=== PATIENT | female | born 1960 | race African-American/Black ===

== ENCOUNTER 2023-08-15 10:44 | Outpatient (CLI) | payer OTHER, MEDICAID | END 2023-08-15 10:45 | disposition home or self-care (01) | LOC: CSHRAD 10:44 | PROVIDERS: ATTEND Internal Medicine | DX: J44.1 Chronic obstructive pulmonary disease with (acute) exacerbation (principal) | CPT/HCPCS: 71046 ==

== ENCOUNTER 2023-11-03 18:30 | Inpatient (IN) | payer OTHER, MEDICAID ==
[2023-11-03] MEDS ORDERED: Furosemide 40 MG/4 ML VIAL SLOW IVP SCH (23:15)
[2023-11-03] MEDS ORDERED: Aspirin 325 MG TAB PO SCH (23:15)
[2023-11-03] MEDS ORDERED: Potassium Chloride 20 MEQ TAB PO SCH (23:15)
[2023-11-03 23:43] LABS: Magnesium 2.1 mg/dL (1.6-2.6)
[2023-11-03 23:49] LABS: Troponin I 0.081 ng/mL (< 0.028)
[2023-11-04 01:43] LABS: Amphetamine Not Detected (NotDetected); Barbiturates Screen Not Detected (NotDetected); Benzodiazepine Screen Not Detected (NotDetected); Cocaine Metabolite Screen Detected (NotDetected); Methadone Not Detected (NotDetected); Methamphetamine Not Detected (NotDetected); Opiate Screen Not Detected (NotDetected); Oxycodone Screen Not Detected (NotDetected); Phencyclidine (PCP) Not Detected (NotDetected); THC/Cannabinoid Screen Not Detected (NotDetected); Tricyclic Screen Not Detected (NotDetected)
[2023-11-04 04:12] LABS: Anisocytosis SLIGHT = 6-15 cells (100X) (0-5/hpf); Macrocytosis MODERATE=16-30 cells (100X) (0-5/hpf)
[2023-11-04 04:16] LABS: Microcytosis SLIGHT = 6-15 cells (100X) (0-5/hpf); Target Cells SLIGHT = 2-5 cells (100X) (0-1/hpf)
[2023-11-04 04:17] LABS: #Monocytes 0.6 10x3/uL (0.0-1.1); #Neutrophils 2.9 10x3/uL (1.5-8.4); %Basophils 0.4 % (0.0-2.0); %Eosinophils 0.7 % (0.0-6.0); %Lymphocytes 22.3 % (18.0-47.0); %Monocytes 13.2 % (0.0-10.0); %Neutrophils 63.2 % (40.0-75.0); Hematocrit 43.3 % (34.9-44.5); Mean Corpuscular HGB CONC 34.6 g/dL (32.0-36.0); Mean Corpuscular Hemoglobin 42.9 pg (27.0-33.0); Mean Corpuscular Volume 123.7 fl (81.6-98.3); Mean Platelet Volume 11.1 fl (7.4-10.4); Platelet Count 173 10x3/uL (150-450); RBC Distribution Width 15.6 % (11.5-14.5); White Blood Cell (WBC) Count 4.6 10x3/uL (3.5-10.5)
[2023-11-04] MEDS: Furosemide 40 MG/4 ML VIAL SLOW IVP SCH ×2 (05:40→14:59)
[2023-11-04 05:53] LABS: Troponin I 0.094 ng/mL (< 0.028)
[2023-11-04 06:33] LABS: ALT (SGPT) 16 U/L (8-55); AST (SGOT) 23 U/L (5-34); Albumin 3.5 g/dL (3.4-4.8); Alkaline Phosphatase 75 U/L (40-110); Anion Gap 18 mmol/L (10-20); BUN (Urea Nitrogen) 16 mg/dL (9.8-20.1); Bilirubin, Total 0.8 mg/dL (0.2-1.2); Calc. Creatinine Clearance 77 mL/min (70-130); Calcium 8.8 mg/dL (7.8-10.44); Carbon Dioxide 29 mmol/L (23-31); Chloride 105 mmol/L (98-107); Estimated GFR 83; Glucose 89 mg/dL (80-115); Potassium 4.3 mmol/L (3.5-5.1); Protein, Total 6.5 g/dL (5.8-8.1); Sodium 148 mmol/L (136-145)
[2023-11-04 08:21] VITALS: BMI 23.7
[2023-11-04] MEDS: Folic Acid 1 MG TAB PO SCH (09:05)
[2023-11-04] MEDS: Lisinopril 5 MG TAB PO SCH (09:05)
[2023-11-04] MEDS: Aspirin Chewable 81 MG TAB PO SCH (09:09)
[2023-11-04 12:38] LABS: Uric Acid 5.5 mg/dL (2.6-6.0)
[2023-11-04] MEDS: Ipratropium/Albuterol 3 ML NEB NEB PRN (20:02)
[2023-11-04] MEDS: Atorvastatin Calcium 10 MG TAB PO SCH (20:26)
[2023-11-05] MEDS: Ipratropium/Albuterol 3 ML NEB NEB PRN (02:05)
[2023-11-05] MEDS ORDERED: Nitroglycerin 2% Ointment 1 INCH/1 GM Packet TOP SCH (03:30)
[2023-11-05] MEDS ORDERED: Lorazepam 0.5 MG TAB PO SCH (03:45)
[2023-11-05 04:30] LABS: Anion Gap 13 mmol/L (10-20); BUN (Urea Nitrogen) 19 mg/dL (9.8-20.1); Calc. Creatinine Clearance 77 mL/min (70-130); Calcium 8.8 mg/dL (7.8-10.44); Carbon Dioxide 36 mmol/L (23-31); Chloride 99 mmol/L (98-107); Estimated GFR 83; Glucose 95 mg/dL (80-115); Magnesium 2.1 mg/dL (1.6-2.6); Potassium 3.7 mmol/L (3.5-5.1); Sodium 144 mmol/L (136-145)
[2023-11-05 04:45] LABS: Troponin I 0.089 ng/mL (< 0.028)
[2023-11-05] MEDS: Furosemide 40 MG/4 ML VIAL SLOW IVP SCH ×2 (05:23→12:48)
[2023-11-05] MEDS ORDERED: Potassium Chloride 20 MEQ TAB PO SCH (06:00)
[2023-11-05] MEDS: Budesonide 0.5 MG/2 ML NEB INH SCH (07:30)
[2023-11-05] MEDS: Folic Acid 1 MG TAB PO SCH (09:09)
[2023-11-05] MEDS: Aspirin Chewable 81 MG TAB PO SCH (09:09)
[2023-11-05] MEDS: Cyanocobalamin (Vitamin B-12) 1,000 MCG TAB PO SCH (09:09)
[2023-11-05] MEDS: Lisinopril 5 MG TAB PO SCH (09:10)
[2023-11-05] MEDS: cefTRIAXone\\ROCEPHIN 1 GM in Sodium Chloride 0.9% 100 ML IVPB SCH (12:00)
[2023-11-05] MEDS: methylPREDNISolone Sod Succ 40 MG VIAL IVP SCH ×2 (12:47→20:21)
[2023-11-05] MEDS: Atorvastatin Calcium 10 MG TAB PO SCH (20:21)
[2023-11-06 04:23] LABS: Anion Gap 14 mmol/L (10-20); BUN (Urea Nitrogen) 28 mg/dL (9.8-20.1); Calc. Creatinine Clearance 74 mL/min (70-130); Calcium 8.8 mg/dL (7.8-10.44); Carbon Dioxide 35 mmol/L (23-31); Chloride 100 mmol/L (98-107); Estimated GFR 78; Glucose 132 mg/dL (80-115); Potassium 4.5 mmol/L (3.5-5.1); Sodium 144 mmol/L (136-145)
[2023-11-06] MEDS: Furosemide 40 MG/4 ML VIAL SLOW IVP SCH ×2 (06:13→16:02)
[2023-11-06] MEDS: methylPREDNISolone Sod Succ 40 MG VIAL IVP SCH ×3 (06:14→20:44)
[2023-11-06] MEDS: Folic Acid 1 MG TAB PO SCH (09:39)
[2023-11-06] MEDS: Cyanocobalamin (Vitamin B-12) 1,000 MCG TAB PO SCH (09:39)
[2023-11-06] MEDS: Lisinopril 5 MG TAB PO SCH (09:39)
[2023-11-06] MEDS: Aspirin Chewable 81 MG TAB PO SCH (09:39)
[2023-11-06] MEDS: Budesonide 0.5 MG/2 ML NEB INH SCH (13:00)
[2023-11-06] MEDS: cefTRIAXone\\ROCEPHIN 1 GM in Sodium Chloride 0.9% 100 ML IVPB SCH (16:02)
[2023-11-06] MEDS: Ipratropium Bromide 2.5 ml Neb NEB SCH ×3 (17:14→22:58)
[2023-11-06] MEDS: Atorvastatin Calcium 10 MG TAB PO SCH (20:43)
[2023-11-07] MEDS: Ipratropium Bromide 2.5 ml Neb NEB SCH ×6 (02:33→22:30)
[2023-11-07 04:25] LABS: Anion Gap 14 mmol/L (10-20); BUN (Urea Nitrogen) 32 mg/dL (9.8-20.1); Calc. Creatinine Clearance 61 mL/min (70-130); Calcium 8.9 mg/dL (7.8-10.44); Carbon Dioxide 34 mmol/L (23-31); Chloride 96 mmol/L (98-107); Estimated GFR 67; Glucose 142 mg/dL (80-115); Potassium 4.2 mmol/L (3.5-5.1); Sodium 140 mmol/L (136-145)
[2023-11-07] MEDS: methylPREDNISolone Sod Succ 40 MG VIAL IVP SCH ×3 (05:36→21:51)
[2023-11-07] MEDS: Furosemide 40 MG/4 ML VIAL SLOW IVP SCH ×2 (05:36→15:33)
[2023-11-07] MEDS: Budesonide 0.5 MG/2 ML NEB INH SCH (07:30)
[2023-11-07] MEDS: Cyanocobalamin (Vitamin B-12) 1,000 MCG TAB PO SCH (08:21)
[2023-11-07] MEDS: Lisinopril 5 MG TAB PO SCH (08:22)
[2023-11-07] MEDS: Aspirin Chewable 81 MG TAB PO SCH (08:24)
[2023-11-07] MEDS: Folic Acid 1 MG TAB PO SCH (08:24)
[2023-11-07] MEDS: cefTRIAXone\\ROCEPHIN 1 GM in Sodium Chloride 0.9% 100 ML IVPB SCH (11:57)
[2023-11-07] MEDS: Famotidine 20 MG TAB PO SCH (21:50)
[2023-11-07] MEDS: Calcium Carbonate 500 MG ChewTAB PO PRN (21:50)
[2023-11-07] MEDS: Atorvastatin Calcium 10 MG TAB PO SCH (21:50)
[2023-11-08] MEDS: Ipratropium Bromide 2.5 ml Neb NEB SCH ×6 (02:36→22:42)
[2023-11-08 04:18] LABS: Anion Gap 14 mmol/L (10-20); BUN (Urea Nitrogen) 42 mg/dL (9.8-20.1); Calc. Creatinine Clearance 0 mL/min (70-130); Calcium 8.6 mg/dL (7.8-10.44); Carbon Dioxide 35 mmol/L (23-31); Chloride 94 mmol/L (98-107); Estimated GFR 65; Glucose 136 mg/dL (80-115); Potassium 4.4 mmol/L (3.5-5.1); Sodium 139 mmol/L (136-145)
[2023-11-08] MEDS: Cyanocobalamin (Vitamin B-12) 1,000 MCG TAB PO SCH (08:02)
[2023-11-08] MEDS: Furosemide 40 MG/4 ML VIAL SLOW IVP SCH ×2 (08:02→14:44)
[2023-11-08] MEDS: methylPREDNISolone Sod Succ 40 MG VIAL IVP SCH (08:02)
[2023-11-08] MEDS: Folic Acid 1 MG TAB PO SCH (08:02)
[2023-11-08] MEDS: Aspirin Chewable 81 MG TAB PO SCH (08:02)
[2023-11-08] MEDS: Lisinopril 5 MG TAB PO SCH (08:03)
[2023-11-08] MEDS: Famotidine 20 MG TAB PO SCH ×2 (08:03→22:25)
[2023-11-08] MEDS: Budesonide 0.5 MG/2 ML NEB INH SCH (08:15)
[2023-11-08] MEDS: cefTRIAXone\\ROCEPHIN 1 GM in Sodium Chloride 0.9% 100 ML IVPB SCH (12:11)
[2023-11-08] MEDS: Calcium Carbonate 500 MG ChewTAB PO PRN ×2 (18:09→22:45)
[2023-11-08] MEDS ORDERED: methylPREDNISolone Sod Succ 40 MG VIAL IVP SCH (21:00)
[2023-11-08] MEDS: Atorvastatin Calcium 10 MG TAB PO SCH (22:25)
[2023-11-09] MEDS: Ipratropium Bromide 2.5 ml Neb NEB SCH ×4 (01:57→15:40)
[2023-11-09 03:45] LABS: Anion Gap 14 mmol/L (10-20); BUN (Urea Nitrogen) 48 mg/dL (9.8-20.1); Calc. Creatinine Clearance 72 mL/min (70-130); Calcium 8.6 mg/dL (7.8-10.44); Carbon Dioxide 36 mmol/L (23-31); Chloride 95 mmol/L (98-107); Estimated GFR 77; Glucose 86 mg/dL (80-115); Potassium 4.1 mmol/L (3.5-5.1); Sodium 141 mmol/L (136-145)
[2023-11-09 03:49] LABS: #Monocytes 1.1 10x3/uL (0.0-1.1); #Neutrophils 5.1 10x3/uL (1.5-8.4); %Basophils 0.3 % (0.0-2.0); %Eosinophils 0.1 % (0.0-6.0); %Monocytes 14.4 % (0.0-10.0); %Neutrophils 67.1 % (40.0-75.0); Hematocrit 42.8 % (34.9-44.5); Mean Corpuscular Hemoglobin 42.4 pg (27.0-33.0); Mean Corpuscular Volume 120.9 fl (81.6-98.3); Mean Platelet Volume 11.6 fl (7.4-10.4); Platelet Count 212 10x3/uL (150-450); RBC Distribution Width 15.1 % (11.5-14.5); Red Blood Cell (RBC) Count 3.54 10x6/uL (3.90-5.03); White Blood Cell (WBC) Count 7.6 10x3/uL (3.5-10.5)
[2023-11-09 04:46] LABS: Macrocytosis SLIGHT = 6-15 cells (100X) (0-5/hpf); Platelet Adequacy Comment Appears Adequate
[2023-11-09 04:47] LABS: Anisocytosis SLIGHT = 6-15 cells (100X) (0-5/hpf); Microcytosis SLIGHT = 6-15 cells (100X) (0-5/hpf)
[2023-11-09] MEDS: Furosemide 40 MG/4 ML VIAL SLOW IVP SCH ×2 (05:44→13:46)
[2023-11-09] MEDS: Budesonide 0.5 MG/2 ML NEB INH SCH (07:45)
[2023-11-09] MEDS ORDERED: methylPREDNISolone Sod Succ 40 MG VIAL IVP SCH (09:00)
[2023-11-09] MEDS: Aspirin Chewable 81 MG TAB PO SCH (10:17)
[2023-11-09] MEDS: Famotidine 20 MG TAB PO SCH (10:17)
[2023-11-09] MEDS: Cyanocobalamin (Vitamin B-12) 1,000 MCG TAB PO SCH (10:17)
[2023-11-09] MEDS: Lisinopril 5 MG TAB PO SCH (10:17)
[2023-11-09] MEDS: Folic Acid 1 MG TAB PO SCH (10:17)
[2023-11-09] MEDS: cefTRIAXone\\ROCEPHIN 1 GM in Sodium Chloride 0.9% 100 ML IVPB SCH (12:00)
[2023-11-09 13:50] VITALS: TEMP 98.5
[2023-11-09 15:20] VITALS: BP 106/62
== END 2023-11-09 15:59 | disposition home or self-care (01) | DRG 291 ==
LOC: CSHTELE 20:40 → OBSVTOIN 22:56 → INTOOBSV 23:05 → OBSVTOIN 23:05
PROVIDERS: ADMIT Internal Medicine; ATTEND Internal Medicine
DX: I11.0 Hypertensive heart disease with heart failure (principal); I50.33 Acute on chronic diastolic (congestive) heart failure; J96.21 Acute and chronic respiratory failure with hypoxia; I24.89 Other forms of acute ischemic heart disease; J44.1 Chronic obstructive pulmonary disease with (acute) exacerbation; F19.90 Other psychoactive substance use, unspecified, uncomplicated; E78.5 Hyperlipidemia, unspecified; D75.89 Other specified diseases of blood and blood-forming organs; Z79.82 Long term (current) use of aspirin; Z79.899 Other long term (current) drug therapy; F17.210 Nicotine dependence, cigarettes, uncomplicated; Z82.49 Family history of ischemic heart disease and other diseases of the circulatory system
CPT/HCPCS: 36415; 80048; 80053; 80306; 82607; 83735; 83880; 84484; 84550; 85025; 93005; 93010; 93306; 94640; 94760; J0696; J1650; J1940; J2920; J3490; J7620; J7626

== ENCOUNTER 2024-09-13 10:41 | Emergency (ER) | payer OTHER ==
[~2024-09-13 10:41] MED LIST: Iopamidol 370 76% 100 ML VIAL ONE
[2024-09-13] MEDS ORDERED: Magnesium 2 GM/50 ML BAG (IN WATER) ONE (10:46)
[2024-09-13] MEDS ORDERED: cefTRIAXone (ROCEPHIN) 1 GM VIAL ONE (10:47)
[2024-09-13] MEDS ORDERED: methylPREDNISolone Sod Succ/PF 125 MG/2 ML VIAL ONE (10:47)
[2024-09-13] MEDS ORDERED: Ipratropium/Albuterol 3 ML NEB ONE (10:58)
[2024-09-13 11:46] LABS: D-Dimer Test 3.34 mcg/mL (0.19-0.50); INR-International Normal Ratio 1.2; PTT 30.7 sec (22.0-33.0)
[2024-09-13 11:51] LABS: Acetaminophen Less than 10 mcg/mL (Less than 10); Alcohol Less than 10.0 mg/dL (Less than 10); Lipase 33 U/L (8-78); Magnesium 1.9 mg/dL (1.6-2.6); Salicylate Less than 8.0 mg/dL (Less than 8.0)
[2024-09-13 11:52] LABS: ALT (SGPT) 10 U/L (8-55); AST (SGOT) 19 U/L (5-34); Albumin 2.9 g/dL (3.4-4.8); Alkaline Phosphatase 76 U/L (40-110); Anion Gap 16 mmol/L (10-20); BUN (Urea Nitrogen) 26 mg/dL (9.8-20.1); Bilirubin, Total 2.7 mg/dL (0.2-1.2); Calc. Creatinine Clearance 0 mL/min (70-130); Calcium 8.1 mg/dL (7.8-10.44); Carbon Dioxide 22 mmol/L (23-31); Chloride 110 mmol/L (98-107); Estimated GFR 61; Globulin 2.6 g/dL (2.4-3.5); Glucose 88 mg/dL (80-115); Potassium 3.8 mmol/L (3.5-5.1); Protein, Total 5.5 g/dL (5.8-8.1); Sodium 144 mmol/L (136-145)
[2024-09-13 12:08] LABS: Hematocrit 36.5 % (34.9-44.5); Hemoglobin 12.6 g/dL (12.0-15.5); MDiff Complete? YES; Mean Corpuscular HGB CONC 34.5 g/dL (32.0-36.0); Mean Corpuscular Hemoglobin 42.1 pg (27.0-33.0); Mean Corpuscular Volume 122.1 fL (81.6-98.3); Mean Platelet Volume 10.7 fL (7.4-10.4); Platelet Count 191 10x3/uL (150-450); RBC Distribution Width 15.8 % (11.5-14.5); Red Blood Cell (RBC) Count 2.99 10x6/uL (3.90-5.03)
[2024-09-13 12:13] LABS: Band 7 % (5-11); Lymphocytes 3 % (21-51); Neutrophil 90 % (42-75); Platelet Adequacy Comment Platelets Normal
[2024-09-13 12:24] LABS: Troponin I 0.211 ng/mL (< 0.028)
[2024-09-13] MEDS ORDERED: Metoprolol Tartrate 5 MG (5 mL) VIAL ONE (12:51)
[2024-09-13] MEDS ORDERED: Azithromycin 500 MG VIAL ONE (12:52)
== END 2024-09-13 13:20 | disposition short-term general hospital (02) ==
LOC: CSHERS 10:41
DX: A41.9 Sepsis, unspecified organism (principal); J44.1 Chronic obstructive pulmonary disease with (acute) exacerbation; J18.9 Pneumonia, unspecified organism; R06.03 Acute respiratory distress; I48.92 Unspecified atrial flutter; E78.5 Hyperlipidemia, unspecified; I10 Essential (primary) hypertension; F17.210 Nicotine dependence, cigarettes, uncomplicated; E78.00 Pure hypercholesterolemia, unspecified; J44.9 Chronic obstructive pulmonary disease, unspecified; Z55.6 Problems related to health literacy; Z79.899 Other long term (current) drug therapy
CPT/HCPCS: 36415; 71045; 71275; 80053; 80307; 83605; 83690; 83735; 83880; 84145; 84443; 84484; 85025; 85379; 85610; 85730; 87040; 87428; 93005; J0456; J0696; J2919; J3475; J7620; Q9967